=== PATIENT | female | born 1950 | race Caucasian/White ===

== ENCOUNTER 2018-01-19 11:58 | Observation (INO) | payer MEDICARE, OTHER ==
[~2018-01-19] VITALS: Ht 162.6 cm; Wt 100.2 kg
[~2018-01-19 11:58] MED LIST: INDOCIN25 MG/5 ML PO; LIBRAX CAPSULE1 EACH PO; MOTRIN400 MG PO; OMEPRAZOLE20 M1 PO
[2018-01-19] MEDS ORDERED: ASPIRIN 81 MG CHEW TAB PO ONE (12:00)
--- NOTE | 2018-01-19 12:17 | Diagnostic Imaging Report ---
PROCEDURE: CHEST SINGLE (PORTABLE) COMPARISON: Chest x-ray 08/11/13. INDICATIONS: CHEST PAIN, INDIGESTIION FINDINGS: LUNGS: No consolidations or edema. No soft tissue mass. PLEURA: No effusions or pneumothorax. HEART \T\ MEDIASTINUM: The heart is within normal size-limits. No hilar lymphadenopathy. BONES \T\ SOFT TISSUES: No acute findings. CONCLUSION: No acute thoracic abnormality. Dictated by: David Donovan M.D. on 01/19/2018 at 12:18 Electronically approved by: David Donovan M.D. on 01/19/2018 at 12:18
[2018-01-19] MEDS ORDERED: KETOROLAC TROMETHAMINE 30 MG/ML VIAL IV STA (12:35)
[2018-01-19] MEDS ORDERED: BELLADONNA ALK/PHENOBARBITAL 5 ML UDC PO STA (12:37)
[2018-01-19] MEDS ORDERED: BELLADONNA ALK/PHENOBARBITAL 5 ML UDC ONE (12:44)
[2018-01-19] MEDS ORDERED: LIDOCAINE VISC 2% SOLN 15 ML UDC PO ONE (12:45)
[2018-01-19] MEDS ORDERED: MAGNESIUM/ALUMINUM/SIMETHICONE 30 ML UDC PO ONE (12:45)
[2018-01-19 12:58] LABS: BASOPHILS % 0.4 % (0.0-1.0); EOSINOPHILS # (AUTO) 0.2 (0.0-0.4); HEMATOCRIT 39.8 % (34.2-44.1); HEMOGLOBIN 13.7 g/dL (12.0-16.0); LYMPHOCYTES # (AUTO) 3.1 (1.0-3.2); LYMPHOCYTES % 44.3 % (18.0-39.1); MEAN CORPUSCULAR HEMOGLOBIN 29.6 pg (28-32); MEAN CORPUSCULAR HGB CONC 34.4 g/dL (31-35); MONOCYTES # (AUTO) 0.4 (0.2-0.8); MONOCYTES % 6.4 % (4.4-11.3); NEUTROPHILS # (AUTO) 3.2 (2.1-6.9); NEUTROPHILS % 45.8 % (38.7-80.0); PLATELET COUNT 188 x10e3/uL (140-360); RED BLOOD COUNT 4.63 x10e6/uL (3.6-5.1)
[2018-01-19 13:03] LABS: INR 1.03; PROTHROMBIN TIME 12.7 seconds (11.9-14.5)
[2018-01-19 13:10] LABS: ALANINE AMINOTRANSFERASE 19 IU/L (0-55); ALBUMIN 4.1 g/dL (3.5-5.0); ALBUMIN/GLOBULIN RATIO 1.3 (0.8-2.0); ALKALINE PHOSPHATASE 74 IU/L (40-150); ANION GAP 15.9 mmol/L (8-16); BLOOD UREA NITROGEN 15 mg/dL (7-26); BUN/CREATININE RATIO 18 (6-25); CALCIUM 9.8 mg/dL (8.4-10.2); CARBON DIOXIDE 24 mmol/L (22-29); CHLORIDE 105 mmol/L (98-107); CREATINE KINASE 55 IU/L (29-168); CREATININE, SERUM 0.84 mg/dL (0.57-1.11); EST GLOMERULAR FILTRATION RATE > 60 ML/MIN (60-); GLUCOSE 130 mg/dL (74-118); MAGNESIUM 2.3 MG/DL (1.3-2.1); POTASSIUM 3.9 mmol/L (3.5-5.1); SODIUM 141 mmol/L (136-145)
[2018-01-19 13:30] LABS: THYROID STIMULATING HORMONE 1.919 uIU/mL (0.350-4.940)
[2018-01-19] MEDS ORDERED: GABAPENTIN300 MG PO (14:33)
[2018-01-19] MEDS ORDERED: TRAZODONE HCL50 MG PO (14:33)
[2018-01-19] MEDS ORDERED: TERBINAFINE HC250 MG PO (14:33)
[2018-01-19] MEDS ORDERED: METFORMIN HCL500 MG PO (14:33)
[2018-01-19] MEDS ORDERED: PANTOPRAZOLE 40 MG 10ML VIAL IV STA (14:53)
[2018-01-19] MEDS ORDERED: LORAZEPAM INJ 2 MG/ML VIAL IV ONE (15:00)
[2018-01-19] MEDS ORDERED: ONDANSETRON HCL INJ 2 MG/ML VIAL IV PRN (16:15)
[2018-01-19] MEDS ORDERED: NITROGLYCERIN 0.4 MG SUBL SL PRN (16:15)
[2018-01-19] MEDS ORDERED: MORPHINE SULFATE 2 MG/ML SYR IV PRN (16:15)
[2018-01-19] MEDS ORDERED: SODIUM CHLORIDE FLUSH 10 ML SYR INJ PRN (16:15)
[2018-01-19] MEDS: PANTOPRAZOLE 40 MG 10ML VIAL IV SCH (16:23)
[2018-01-19 16:27] LABS: BILIRUBIN,URINE NEGATIVE (NEGATIVE); KETONES,URINE NEGATIVE (NEGATIVE); LEUKOCYTE ESTERASE ,URINE NEGATIVE (NEGATIVE); NITRITE,URINE NEGATIVE (NEGATIVE); PROTEIN,URINE DIPSTICK NEGATIVE (NEGATIVE); URINE UROBILINOGEN 0.2 mg/dL (0.2 - 1)
[2018-01-19 16:35] LABS: CLARITY,URINE CLEAR (CLEAR); COLOR,URINE YELLOW (YELLOW)
[2018-01-19 16:41] LABS: EPITHELIAL CELLS,URINE MANY /LPF; TRANSITIONAL EPI CELLS,URINE FEW; WBC,URINE (MAN) 0-5 /HPF (0-5)
--- OUTSIDE RECORDS SUMMARY | 2018-01-19 16:49 | XMS REPORT ---
[facility] Address Unknown Phone Unavailable Care Team Providers Care Form Setter [employer] Forms Name Role Phone GUILLERMINA MENARD Unavailable Unavailable Problems This patient has no known problems. Allergies, Adverse Reactions, Alerts This patient has no known allergies or adverse reactions. Medications This patient has no known medications. Results Test Description Test Time Test Comments Text Results Atomic Results Result Comments CHEST SINGLE (PORTABLE) [place] [address] Patient Name: BRADLEY WYNN MR #: [id number] : 1950 Age/Sex: 67/F Req #: [id number] Adm Physician: Ordered by: TREVOR DODD DRIVE IN WAITER/WAITRESS Report #: [id number] Location: ER Room/Bed: Procedure: [id number] DX/CHEST SINGLE (PORTABLE) Exam Date: 01/19/18 Exam Time: 1200 REPORT STATUS: Signed PROCEDURE: CHEST SINGLE (PORTABLE) COMPARISON: Chest x-ray 08/11/13. INDICATIONS: CHEST PAIN, INDIGESTIION FINDINGS: LUNGS: No consolidations or edema. No soft tissue mass. PLEURA: No effusions or pneumothorax. HEART T MEDIASTINUM: The heart is within normal size-limits. No hilar lymphadenopathy. BONES T SOFT TISSUES: No acute findings. CONCLUSION: No acute thoracic abnormality. Dictated by: aDvid Donovan M.D. on 01/19/2018 at 12:18 Electronically approved by: David Donovan M.D. on 01/19/2018 at 12:18 Dictated By: DAVID DONOVAN MD [id number] COPY TO: TREVOR DODD NP
[2018-01-19 17:10] VITALS: BP 159/70
[2018-01-19 18:03] VITALS: BP 159/70
[2018-01-19 18:04] VITALS: BP 159/70
[2018-01-19] MEDS: NITROGLYCERIN 2% OINT 1 GM PKT TOP SCH (18:26)
[2018-01-19 19:43] LABS: CREATINE KINASE 45 IU/L (29-168)
[2018-01-19 20:00] VITALS: BP 143/65
[2018-01-20] VITALS (8 sets, daily range): BP systolic 120–165; BP diastolic 58–75
[2018-01-20] MEDS: NITROGLYCERIN 2% OINT 1 GM PKT TOP SCH ×4 (00:01→18:00)
[2018-01-20] MEDS: ACETAMINOPHEN 325 MG TAB PO PRN ×3 (00:02→23:59)
[2018-01-20] MEDS: LORAZEPAM INJ 2 MG/ML VIAL IV PRN ×2 (00:06→23:59)
[2018-01-20 06:22] LABS: BASOPHILS % 0.5 % (0.0-1.0); EOSINOPHILS # (AUTO) 0.3 (0.0-0.4); HEMATOCRIT 33.4 % (34.2-44.1); LYMPHOCYTES # (AUTO) 2.5 (1.0-3.2); MEAN CORPUSCULAR HEMOGLOBIN 30.3 pg (28-32); MEAN CORPUSCULAR HGB CONC 34.4 g/dL (31-35); MEAN CORPUSCULAR VOLUME 88.1 fL (81-99); MONOCYTES # (AUTO) 0.6 (0.2-0.8); MONOCYTES % 8.5 % (4.4-11.3); NEUTROPHILS # (AUTO) 3.2 (2.1-6.9); NEUTROPHILS % 48.8 % (38.7-80.0); PLATELET COUNT 175 x10e3/uL (140-360); RED BLOOD COUNT 3.79 x10e6/uL (3.6-5.1); RED CELL DISTRIBUTION WIDTH 12.9 % (11.7-14.4)
[2018-01-20 06:45] LABS: ANION GAP 12.7 mmol/L (8-16); BLOOD UREA NITROGEN 18 mg/dL (7-26); BUN/CREATININE RATIO 22 (6-25); CALCIUM 8.7 mg/dL (8.4-10.2); CARBON DIOXIDE 28 mmol/L (22-29); CHLORIDE 104 mmol/L (98-107); CHOL/HDL RATIO 3.8 (3.0-3.6); CHOLESTEROL 150 MD/DL (0-199); CREATINE KINASE 39 IU/L (29-168); CREATININE, SERUM 0.81 mg/dL (0.57-1.11); EST GLOMERULAR FILTRATION RATE > 60 ML/MIN (60-); GLUCOSE 92 mg/dL (74-118); HDL CHOLESTEROL 39 MG/DL (40-60); LDL CHOLESTEROL 89 MG/DL (60-130); POTASSIUM 3.7 mmol/L (3.5-5.1); SODIUM 141 mmol/L (136-145); TRIGLYCERIDES 108 MG/DL (0-149)
[2018-01-20 07:07] LABS: HEMOGLOBIN 11.5 g/dL (12.0-16.0)
[2018-01-20] MEDS: ASPIRIN 81 MG ENTERIC COATED PO SCH (09:00)
[2018-01-20] MEDS: PANTOPRAZOLE 40 MG 10ML VIAL IV SCH ×2 (09:00→18:30)
[2018-01-20] MEDS ORDERED: ACETAMINOPHEN 1000 MG/100 ML IV STA (09:49)
[2018-01-20] MEDS ORDERED: SODIUM CHLORIDE 0.9% 250ML 250 ML ONE (10:06)
--- NOTE | 2018-01-20 11:02 | Diagnostic Imaging Report ---
PROCEDURE:US GALLBLADDER COMPARISON:None. INDICATIONS:Upper abdominal pain. TECHNIQUE: Grayscale and color Doppler ultrasound FINDINGS: Imaged portions of the inferior vena cava and abdominal aorta are of normal caliber. Scattered atherosclerosis. Limited evaluation of the pancreas is unremarkable. Right liver span: 13 cm. Normal echogenicity and smooth margin. Portal vein diameter 9 mm; normal flow direction. Normal gallbladder. Wall thickness 3 mm. Common bile duct diameter 4 mm. Right renal length 8.8 cm. Mildly increased parenchymal echogenicity without hydronephrosis. CONCLUSION: Normal gallbladder and liver. Dictated by: Trent Rayo M.D. on 01/20/2018 at 11:02 Electronically approved by: Trent Rayo M.D. on 01/20/2018 at 11:02
[2018-01-20] MEDS ORDERED: REGADENOSON 0.4 MG/5 ML SYR IV ONE (12:25)
--- NOTE | 2018-01-20 14:15 | Consultation ---
DATE OF CONSULTATION: January 20, 2018 CARDIOLOGY CONSULTATION REQUESTING PHYSICIAN: Dr. Elyssa Aguiar. REASON FOR CONSULTATION: Chest pain. HISTORY OF PRESENT ILLNESS: This is a 67-year-old woman with history of diabetes mellitus who presents with complaints of chest pain. The patient reports she had an indigestion, burning-type chest pain on Wednesday that lasted a few hours, that improved with Tums and sitting up. However, yesterday, she had a chest pressure radiating to the left arm. This was associated with shortness of breath and nausea. The pain was 10/10 in severity and has been constant since onset. There were no aggravating or alleviating factors. REVIEW OF SYSTEMS: Negative except as per HPI. PAST MEDICAL HISTORY: Diabetes mellitus. PAST SURGICAL HISTORY: Bladder surgery, tubal ligation, and brain tumor resection. ALLERGIES: PLEASE SEE EMR. MEDICATIONS: Please see medication list. SOCIAL HISTORY: No tobacco, alcohol, or illicit drugs. FAMILY HISTORY: Noncontributory. PHYSICAL EXAM VITALS: Temperature 97 degrees, pulse 68, respiratory rate 18, blood pressure 122/73, and oxygen saturation 95% on room air. GENERAL: Awake and alert, in no acute distress. Obese, well-developed, and well-nourished. HEENT: Normocephalic, atraumatic. Pupils are equal. No scleral icterus. NECK: Supple. No thyromegaly or cervical lymphadenopathy. No carotid bruits. LUNGS: Clear to auscultation bilaterally. No wheezes or crackles. CARDIOVASCULAR: Normal rate, regular rhythm. No murmur. Normal S1 and S2. ABDOMEN: Soft and nontender. EXTREMITIES: No edema. NEURO: Nonfocal exam. LABS AND DIAGNOSTICS: WBC 6.48, hemoglobin 11.5, hematocrit 32.4, and platelets 175. Sodium 141, potassium 3.7, chloride 104, CO2 of 28, BUN 18, and creatinine 0.81. Troponin less than 0.001. BNP 19.8. Cholesterol 158, LDL 89, triglycerides 108, and HDL 39. Chest x-ray, no acute thoracic abnormality. Ultrasound of gallbladder, normal gallbladder and liver. EKG, normal sinus rhythm, cannot rule out anterior infarct. IMPRESSION 1. Chest pain. 2. Diabetes mellitus. RECOMMENDATIONS: Echocardiogram has been done. We will review the images. The patient has been ruled out for myocardial infarction with serial cardiac biomarkers. Given her risk factors, we will proceed with ischemic evaluation with treadmill nuclear stress test. Further recommendations to follow. Thank you for this consult. We will continue to follow. Job#: [id number] VAS
[2018-01-20] MEDS ORDERED: MIDAZOLAM HCL 2 MG/2 ML VIAL ONE (14:17)
[2018-01-20] MEDS ORDERED: FENTANYL CITRATE/PF 100MCG/2 ML INJ ONE (14:17)
[2018-01-20] MEDS ORDERED: PROPOFOL IV EMULSION 10 MG/ML 50 ML VIAL ONE (14:23)
--- NOTE | 2018-01-20 15:03 | Cardiology Report ---
DATE OF STUDY: January 20, 2018 PROCEDURE TITLE: Rest/stress single-isotope SPECT imaging with pharmacologic stress and gated SPECT imaging. INDICATIONS: Chest pain. PROCEDURE: Pharmacologic stress testing was performed with regadenoson per protocol. Heart rate was 72 beats per minute at rest and increased to 106 beats per minute during the regadenoson infusion. The rest blood pressure was 140/91 and increased to 185/81 mmHg, which is a normal response. Patient did not develop any significant symptoms other than headache. Next, the resting electrocardiogram demonstrated normal sinus rhythm. There were no ST segment changes consistent with myocardial ischemia. Myocardial perfusion imaging was performed at rest following the injection of 10 millicuries of tetrofosmin. At peak pharmacologic effect, the patient was injected with 32 millicuries of tetrofosmin. Gated poststress tomographic imaging was performed. FINDINGS: The overall quality of the study is fair. Left ventricular cavity is noted to be normal size on the rest and stress studies. SPECT images demonstrate homogenous tracer distribution throughout the myocardium. Gated SPECT imaging revealed normal myocardial thickening and wall motion. Left ventricular ejection fraction was calculated to be 68%. IMPRESSION: Myocardial perfusion imaging is normal. Overall left ventricular systolic function was normal without regional wall motion abnormalities. Job#: [id number]
--- NOTE | 2018-01-20 19:11 | Operative Report ---
DATE OF PROCEDURE: January 20, 2018 REFERRING PHYSICIAN: Dr. Mike Rucker. PROCEDURE PERFORMED: Esophagogastroduodenoscopy. INDICATIONS FOR ESOPHAGOGASTRODUODENOSCOPY: Upper abdominal pain. MEDICATION: Patient was done under MAC. Please see anesthesiologist's note. PROCEDURE: With patient in the left lateral decubitus position, the flexible fiberoptic Olympus gastroscope was introduced into the esophagus under direct visualization without any difficulty. There was some patchy erythema noted in distal esophagus. The scope was then advanced with ease into the stomach traversing a small sliding hiatal hernia. Mucosa overlying the antrum and the body revealed some patchy erythema and low-grade to moderate edema and biopsies were obtained and sent to stain for H. pylori. Some hyperplastic appearing polyps were noted in the body and the proximal antrum and some were partially excised with cold biopsy forceps. A peripyloric fold was noted to be partially obstructing the pyloric channel and that was removed per snare electrocautery. The pylorus was then traversed with ease with a scope which was advanced all the way to the 2nd portion of the duodenum. The scope was then withdrawn slowly. Mucosa overlying the proximal 2nd portion and the duodenal bulb appeared to be within normal limits. The scope was then withdrawn back into the stomach and retroflexed. And mucosa overlying the fundus and the cardia appeared to be within normal limits. The scope was then straightened out. The stomach was decompressed. Scope was subsequently withdrawn. Patient tolerated procedure well. IMPRESSION: 1. Distal esophagitis. 2. Gastritis, biopsied. Biopsy sent stain for pylori. 3. Gastric polyps, hyperplastic appearing, some partially excised with cold biopsy forceps. 4. Peripyloric fold, partially obstructing the pyloric channel, removed per snare electrocautery. PLAN: Follow up histology. Initiate Protonix 40 mg 1 p.o.q.a.m. a.c. Job#: [id number] GH cc:MIKE RUCKER DO
[2018-01-21 00:45] VITALS: BP 151/59
[2018-01-21 01:37] VITALS: BP 151/59
[2018-01-21 04:00] VITALS: BP 148/68
[2018-01-21] MEDS: NITROGLYCERIN 2% OINT 1 GM PKT TOP SCH ×2 (06:00)
[2018-01-21 08:00] VITALS: BP 133/64
[2018-01-21] MEDS: ASPIRIN 81 MG ENTERIC COATED PO SCH (09:24)
[2018-01-21] MEDS: PANTOPRAZOLE 40 MG 10ML VIAL IV SCH (09:24)
[2018-01-21] MEDS ORDERED: PANTOPRAZOLE SO40 MG PO (09:33)
== END 2018-01-21 10:26 | disposition home or self-care (01) ==
LOC: ER 11:58 → ERHOLD 16:47 → IMCU 16:48
DX: R07.89 Other chest pain (principal); K30 Functional dyspepsia; K21.9 Gastro-esophageal reflux disease without esophagitis; G89.29 Other chronic pain; Z88.5 Allergy status to narcotic agent; Z88.0 Allergy status to penicillin; Z91.018 Allergy to other foods; K20.9 Esophagitis, unspecified; K29.70 Gastritis, unspecified, without bleeding; K31.7 Polyp of stomach and duodenum; K44.9 Diaphragmatic hernia without obstruction or gangrene; E11.9 Type 2 diabetes mellitus without complications
CPT/HCPCS: 36415 ×3; 43239; 43250; 71045; 76705; 78452; 80048; 80053; 80061; 81001; 82550 ×2; 82553 ×2; 82948 ×3; 83735; 83880; 84443; 84484 ×2; 85025 ×2; 85610; 85730; 88305; 88312; 93005; 93017; 93306; 99284; A9502; G0378 ×3; J1885; J2060 ×2; J2250; J2405; J7050; 88304